=== PATIENT | male | born 1950 | race Caucasian/White ===

== ENCOUNTER 2016-11-06 08:00 | Outpatient (CLI) | payer MEDICARE, BC | END 2016-11-06 08:01 | disposition home or self-care (01) | DX: E29.1 Testicular hypofunction (principal) ==

== ENCOUNTER 2016-11-16 | Outpatient (CLI) | payer MEDICARE, BC | END 2016-11-16 23:59 | disposition EMS.NT ==

== ENCOUNTER 2016-12-12 08:00 | Outpatient (CLI) | payer MEDICARE, BC | END 2016-12-12 08:01 | disposition home or self-care (01) | DX: E78.5 Hyperlipidemia, unspecified (principal) ==

== ENCOUNTER 2017-05-02 08:01 | Outpatient (CLI) | payer MEDICARE, BC ==
[2017-05-02 12:02] LABS: BILIRUBIN,URINE NEGATIVE (NEGATIVE)
[2017-05-02 12:10] LABS: WBC,URINE 0-3 /HPF (0-3)
[2017-05-02 12:15] LABS: BILIRUBIN,TOTAL 0.9 mg/dL (0.2-1.0); BUN - BLOOD UREA NITROGEN 17 mg/dL (6-20); CALCIUM 9.4 mg/dL (8.5-10.3); CARBON DIOXIDE - CO2 28 mmol/L (21-32); CHLORIDE 103 mmol/L (101-111); CHOL/HDL RATIO 3.3 (<5.0); CHOLESTEROL 164 mg/dL; CREATININE 0.9 mg/dL (0.6-1.2); GFR - MDRD 84 (>89); GLUCOSE 91 mg/dL (70-100); HDL CHOLESTEROL 50 mg/dL; POTASSIUM 3.9 mmol/L (3.5-5.0); SODIUM 138 mmol/L (135-145); TOTAL PROTEIN 8.2 g/dL (6.7-8.2); TRIGLYCERIDES 77 mg/dL; VLDL CHOLESTEROL 15 mg/dL
== END 2017-05-02 08:02 | disposition home or self-care (01) ==
LOC: LAB.F 08:01
PROVIDERS: ATTEND Family Medicine
DX: I48.0 Paroxysmal atrial fibrillation (principal); I10 Essential (primary) hypertension; E29.1 Testicular hypofunction
CPT/HCPCS: 36415; 80053; 80061; 81001; 84403; G0103; 82040; 84153; 84270

== ENCOUNTER 2018-01-30 07:27 | Outpatient (CLI) | payer MEDICARE, BC ==
[2018-01-30 12:34] LABS: ALT ALANINE AMINOTRANSFERASE 28 IU/L (10-60); AST ASPARTATE AMINOTRANSFERASE 36 IU/L (10-42); CHOL/HDL RATIO 3.2 (<5.0); CHOLESTEROL 142 mg/dL; CK- CREATINE KINASE 72 IU/L (22-269); HDL CHOLESTEROL 44 mg/dL; LDL CHOLESTEROL,CALCULATED 83 mg/dL; LDL CHOLESTEROL,DIRECT 78 mg/dL; LDL/HDL RATIO 1.9 (<3.6); VLDL CHOLESTEROL 15 mg/dL
== END 2018-01-30 07:28 | disposition home or self-care (01) ==
LOC: LAB.F 07:27
PROVIDERS: ATTEND Internal Medicine Cardiovascular Disease
DX: E78.5 Hyperlipidemia, unspecified (principal)
CPT/HCPCS: 36415; 80061; 82550; 83721; 84450; 84460

== ENCOUNTER 2018-05-20 07:49 | Outpatient (CLI) | payer MEDICARE, BC ==
[2018-05-20 11:20] LABS: BASOPHILS % (AUTO) 0.6 %; EOSINOPHILS # (AUTO) 0.1 10^3/uL (0.0-0.7); EOSINOPHILS % (AUTO) 2.6 %; HGB - HEMOGLOBIN 13.4 g/dL (14.0-18.0); LYMPHOCYTES # (AUTO) 1.2 10^3/uL (1.5-3.5); LYMPHOCYTES % (AUTO) 24.6 %; MEAN CORPUSCULAR HEMOGLOBIN 33.5 pg (27.0-31.0); MEAN CORPUSCULAR HGB CONC 33.2 g/dL (32.0-36.0); MEAN CORPUSCULAR VOLUME 100.8 fL (80.0-94.0); MEAN PLATELET VOLUME 8.1 fL (7.4-11.4); MONOCYTES # (AUTO) 0.5 10^3/uL (0.0-1.0); MONOCYTES % (AUTO) 9.8 %; NEUTROPHILS % (AUTO) 62.4 %; PLT - PLATELET COUNT 254 10^3/uL (130-450); RED BLOOD COUNT 4.01 10^6/uL (4.70-6.10); RED CELL DISTRIBUTION WIDTH 13.8 % (12.0-15.0); WHITE BLOOD COUNT 4.8 x10^3/uL (4.8-10.8)
[2018-05-20 11:28] LABS: ALBUMIN 3.8 g/dL (3.2-5.5); ALBUMIN/GLOBULIN RATIO 0.9 (1.0-2.2); BILIRUBIN,TOTAL 0.9 mg/dL (0.2-1.0); CALCIUM 9.2 mg/dL (8.5-10.3); CREATININE 0.7 mg/dL (0.6-1.2)
[2018-05-21 14:20] LABS: % IRON SATURATION 16 % (20-50); IRON 60 ug/dL (45-182); TOTAL IRON BINDING CAPACITY 367 ug/dL (250-450); TRANSFERRIN 262 mg/dL (180-329)
== END 2018-05-20 07:50 | disposition home or self-care (01) ==
LOC: LAB.F 07:49
PROVIDERS: ATTEND Physician Assistant Medical
DX: I10 Essential (primary) hypertension (principal); E29.1 Testicular hypofunction; D64.9 Anemia, unspecified
CPT/HCPCS: 36415; 80053; 81599; 82728; 83540; 84402; 84403; 84466; 85025

== ENCOUNTER 2018-09-23 14:55 | Outpatient (CLI) | payer MEDICARE, BC ==
--- NOTE | 2018-09-23 16:26 | XRAY Report ---
Reason: COUGH Procedure Date: 09/23/2018 Accession Number: [id number] / [id number] Procedure: XR - Chest 2 View X-Ray CPT Code: 14226 FULL RESULT: EXAM: CHEST RADIOGRAPHY EXAM DATE: 09/23/2018 04:09 PM. CLINICAL HISTORY: Cough. COMPARISON: None. TECHNIQUE: 2 views. FINDINGS: Lungs/Pleura: There is a subtle right lower lung 1 cm nodule. A 0.8 cm left lower lung nodule was not seen previously. No pleural effusion. No pneumothorax. Normal volumes. Mediastinum: Normal sized cardiomediastinal silhouette, CABG changes, and calcified aortic arch, stable. Other: Stable median sternotomy changes. IMPRESSION: New lung nodules. Recommend CT to clarify. No consolidative airspace disease. RADIA
== END 2018-09-23 14:56 | disposition home or self-care (01) ==
LOC: DI 14:55
PROVIDERS: ATTEND Internal Medicine
DX: R05 Cough (principal); R91.8 Other nonspecific abnormal finding of lung field
CPT/HCPCS: 71046

== ENCOUNTER 2018-09-28 10:47 | Outpatient (CLI) | payer MEDICARE, BC ==
--- NOTE | 2018-09-29 23:03 | CT Report ---
Reason: PULMONARY NODULE Procedure Date: 09/28/2018 Accession Number: [id number] / [id number] Procedure: CT - Chest W/O CPT Code: FULL RESULT: EXAM: CT CHEST EXAM DATE: 09/28/2018 11:30 AM. CLINICAL HISTORY: PULMONARY NODULE. COMPARISONS: CHEST 2 VIEW 09/23/2018 3:38 PM. TECHNIQUE: Routine helical CT imaging was performed through the chest. IV contrast: None. Reconstructions: Coronal and sagittal. In accordance with CT protocol optimization, one or more of the following dose reduction techniques were utilized for this exam: automated exposure control, adjustment of mA and/or KV based on patient size, or use of iterative reconstructive technique. FINDINGS: Lungs/Pleura: Mild emphysema. Minimal basilar atelectasis. No pulmonary nodule or mass lesion. Mediastinum: Postoperative changes of cardiac surgery. No adenopathy. Bones: Degenerative and postoperative changes. Visualized Abdomen: Unremarkable. Other: None. IMPRESSION: Mild emphysema. No suspicious pulmonary nodule present. Plain film abnormalities likely correlate with nipple shadows. RADIA
== END 2018-09-28 10:48 | disposition home or self-care (01) ==
LOC: DI 10:47
PROVIDERS: ATTEND Internal Medicine
DX: J43.9 Emphysema, unspecified (principal)
CPT/HCPCS: 71250

== ENCOUNTER 2018-09-30 13:33 | Day surgery (SDC) | payer MEDICARE, BC ==
[2018-09-30] MEDS ORDERED: LACTATED RINGERS 1,000 ML IV ONE (13:58)
[2018-09-30] MEDS ORDERED: MIDAZOLAM 2 MG/2 ML VIAL IVP ONE (14:53)
[2018-09-30] MEDS ORDERED: fentaNYL 250 MCG/5 ML VIAL IVP ONE (14:53)
[2018-09-30 15:49] VITALS: BP 122/74
== END 2018-09-30 13:34 | disposition home or self-care (01) ==
LOC: SDS 13:33
PROVIDERS: ATTEND Surgery
PROC: 0DBP8ZZ Excision of Rectum, Via Natural or Artificial Opening Endoscopic (ICD-10-PCS; 2018-09-30)
PROC: 0DBH8ZZ Excision of Cecum, Via Natural or Artificial Opening Endoscopic (ICD-10-PCS; principal; 2018-09-30 14:45)
DX: Z12.11 Encounter for screening for malignant neoplasm of colon (principal); D12.0 Benign neoplasm of cecum; K62.1 Rectal polyp; K64.8 Other hemorrhoids; Z80.0 Family history of malignant neoplasm of digestive organs; Z79.01 Long term (current) use of anticoagulants; I10 Essential (primary) hypertension; I25.10 Atherosclerotic heart disease of native coronary artery without angina pectoris; Z95.1 Presence of aortocoronary bypass graft; I48.0 Paroxysmal atrial fibrillation
CPT/HCPCS: 45380; J3010; J7120

== ENCOUNTER 2020-10-09 15:21 | Outpatient (CLI) | payer MEDICARE, BC ==
--- NOTE | 2020-10-09 16:25 | XRAY Report ---
PROCEDURE: Chest 2 View X-Ray INDICATIONS: SHORTNESS OF BREATH TECHNIQUE: 2 view(s) of the chest. COMPARISON: CT chest 09/28/2018. FINDINGS: Surgical changes and devices: Post median sternotomy and CABG.. Lungs and pleura: No pleural effusions or pneumothorax. Lungs are clear. Mediastinum: Mediastinal contours are normal. Heart size is within normal limits. Bones and chest wall: No suspicious bony abnormalities. Soft tissues appear unremarkable. IMPRESSION: No acute cardiopulmonary abnormality. Reviewed by: Jf Dobson MD on 10/09/2020 3:24 PM RUST Approved by: Jf Dobson MD on 10/09/2020 3:24 PM RUST Station ID: [id number]
[2020-10-09 18:19] LABS: BASOPHILS % (AUTO) 0.4 %; EOSINOPHILS # (AUTO) 0.1 10^3/uL (0.0-0.7); EOSINOPHILS % (AUTO) 1.1 %; HGB - HEMOGLOBIN 14.7 g/dL (14.0-18.0); LYMPHOCYTES # (AUTO) 1.2 10^3/uL (1.5-3.5); LYMPHOCYTES % (AUTO) 25.5 %; MEAN CORPUSCULAR HEMOGLOBIN 32.9 pg (27.0-31.0); MEAN CORPUSCULAR HGB CONC 32.7 g/dL (32.0-36.0); MEAN CORPUSCULAR VOLUME 100.4 fL (80.0-94.0); MEAN PLATELET VOLUME 10.3 fL (7.4-11.4); MONOCYTES # (AUTO) 0.7 10^3/uL (0.0-1.0); MONOCYTES % (AUTO) 14.8 %; NEUTROPHILS # (AUTO) 2.8 10^3/uL (1.5-6.6); PLT - PLATELET COUNT 204 10^3/uL (130-450); RED BLOOD COUNT 4.47 10^6/uL (4.70-6.10); WHITE BLOOD COUNT 4.7 x10^3/uL (4.8-10.8)
[2020-10-09 18:27] LABS: ALBUMIN 4.5 g/dL (3.2-5.5); ALBUMIN/GLOBULIN RATIO 1.1 (1.0-2.2); BILIRUBIN,TOTAL 0.5 mg/dL (0.2-1.0); CALCIUM 9.9 mg/dL (8.5-10.3); CREATININE 0.8 mg/dL (0.6-1.2); TOTAL PROTEIN 8.6 g/dL (6.7-8.2)
== END 2020-10-09 23:59 | disposition home or self-care (01) ==
LOC: DI.S 15:21
PROVIDERS: ATTEND Physician Assistant Medical
DX: R06.02 Shortness of breath (principal); R53.83 Other fatigue
CPT/HCPCS: 36415; 80053; 85025

== ENCOUNTER 2021-10-05 07:42 | Outpatient (CLI) | payer MEDICARE, BC ==
--- NOTE | 2021-10-05 11:03 | Ultrasound Report ---
PROCEDURE: Aorta Screening INDICATIONS: EX SMOKER TECHNIQUE: Real time scanning was performed of the aorta and iliac arteries, with image documentatio n. COMPARISON: None FINDINGS: Aorta: Proximal aortic diameter measures 2.1 x 2.3 cm. Mid-aorta measures 2.0 x 2.0 cm. Distal aor tic diameter is 1.9 x 2.0 cm. Scattered atherosclerotic plaque noted. Iliac arteries: Right common iliac artery measures 1.4 x 1.5 cm. Left common iliac artery measures 1.2 x 1.2 cm. IMPRESSION: No evidence of abdominal aortic aneurysm. Reviewed by: Iva Jordan MD, PhD on 10/05/2021 11:02 AM PST Approved by: Iva Jordan MD, PhD on 10/05/2021 11:02 AM PST Station ID: [id number]
== END 2021-10-05 07:43 | disposition home or self-care (01) ==
LOC: DI 07:42
PROVIDERS: ATTEND Nurse Practitioner Family
DX: Z13.6 Encounter for screening for cardiovascular disorders (principal); Z87.891 Personal history of nicotine dependence

== ENCOUNTER 2021-10-18 14:59 | Outpatient (CLI) | payer MEDICARE, BC ==
--- NOTE | 2021-10-18 16:00 | XRAY Report ---
PROCEDURE: Cervical Spine 2 View INDICATIONS: CERVIVALGIA, BILAT PX RT/LFT HANDS/FEET TECHNIQUE: 3 view(s) of the cervical spine were acquired. COMPARISON: None. FINDINGS: Bones: No fractures or dislocations to the T1 level. The lateral masses of C1 appear intact on the odontoid view. No suspicious bony lesions. There are severe spondylitic changes of the cervical spi ne with moderate disc space loss, degenerative endplate changes, and prominent endplate osteophyte fo rmation. Findings are most pronounced from C3-4 through C6-7. There is also straightening of normal c ervical lordosis. Moderate bilateral facet arthropathy of the mid and lower cervical spine. Soft tissues: No prevertebral soft tissue swelling. IMPRESSION: Cervical spine without acute fracture. Severe multilevel spondylosis of the cervical spi ne most pronounced from C3-4 through C6-7. Straightening of normal cervical lordosis likely related t o positioning and/or concurrent muscle spasms. Reviewed by: Corbin Galvez MD on 10/18/2021 3:59 PM PST Approved by: Corbin Galvez MD on 10/18/2021 3:59 PM PST Station ID: [id number]
--- NOTE | 2021-10-18 16:02 | XRAY Report ---
PROCEDURE: Thoracic Spine 2 View INDICATIONS: CERVIVALGIA, BILAT PX RT/LFT HANDS/FEET TECHNIQUE: 3 views of the thoracic spine were acquired. COMPARISON: None. FINDINGS: Bones: No acute compression fractures. No traumatic malalignment. No suspicious bony lesions. 12 p airs of ribs are noted, and appear intact where visualized. Moderate-severe multilevel thoracic spon dylosis visualized throughout the imaged spine. Moderate degenerative endplate changes, disc space lo ss, and prominent endplate osteophyte formation. Soft tissues: No paravertebral stripe thickening. Postsurgical changes of the heart. Status post st ernotomy with intact median sternotomy wires. IMPRESSION: Moderate-severe multilevel thoracic spondylosis. No acute osseous abnormalities. Reviewed by: Corbin Galvez MD on 10/18/2021 4:00 PM PST Approved by: Corbin Galvez MD on 10/18/2021 4:00 PM PST Station ID: [id number]
--- NOTE | 2021-10-18 16:02 | XRAY Report ---
PROCEDURE: Foot 3 View BILAT INDICATIONS: CERVIVALGIA, BILAT PX RT/LFT HANDS/FEET TECHNIQUE: 3 views of each foot were acquired. COMPARISON: None FINDINGS: Bones: No fractures or dislocations. No suspicious bony lesions. Joint space narrowing and periart icular osteophyte formation at the bilateral first metatarsophalangeal joints, as well as the interph alangeal joints of the digits bilaterally. Soft tissues: No tibiotalar joint effusion. Achilles tendon appears normal. IMPRESSION: Bilateral osteoarthritis. No acute fracture. No osseous lesion. If symptoms and/or clinical suspicion for pathology continue, further assessment with repeat plain films, or advanced imaging (e.g., CT, M RI, or bone scan) is recommended for further assessment. Reviewed by: Michelle Faust MD on 10/18/2021 4:00 PM PST Approved by: Michelle Faust MD on 10/18/2021 4:00 PM PST Station ID: [id number]
--- NOTE | 2021-10-18 16:04 | XRAY Report ---
PROCEDURE: Hand 3 View BILAT INDICATIONS: CERVIVALGIA, BILAT PX RT/LFT HANDS/FEET TECHNIQUE: 3 views of each hand(s) acquired. COMPARISON: None FINDINGS: Bones: No fractures or dislocations. No suspicious bony lesions. Severe joint space narrowing and periarticular osteophyte formation at the bilateral third metacarpal phalangeal joints. Mild periarti cular osteophyte formation at the interphalangeal joints of the digits bilaterally. Mild joint space narrowing and periarticular ossified formation at the radiocarpal, scaphotrapezial, and first carpome tacarpal joints bilaterally. Soft tissues: No suspicious soft tissue calcifications. IMPRESSION: Multifocal osteoarthritis bilaterally. No acute fracture. No osseous lesion. If symptoms and/or clini chavez suspicion for pathology continue, further assessment with repeat plain films, or advanced imaging (e.g., CT, MRI, or bone scan) is recommended for further assessment. Reviewed by: Michelle Faust MD on 10/18/2021 4:03 PM PST Approved by: Michelle Faust MD on 10/18/2021 4:03 PM PST Station ID: [id number]
[2021-10-18 19:51] LABS: BASOPHILS % (AUTO) 0.8 %; EOSINOPHILS # (AUTO) 0.1 10^3/uL (0.0-0.7); EOSINOPHILS % (AUTO) 2.1 %; HCT - HEMATOCRIT 41.3 % (42.0-52.0); HGB - HEMOGLOBIN 13.6 g/dL (14.0-18.0); LYMPHOCYTES # (AUTO) 1.2 10^3/uL (1.5-3.5); MEAN CORPUSCULAR HEMOGLOBIN 32.5 pg (27.0-31.0); MEAN CORPUSCULAR HGB CONC 32.9 g/dL (32.0-36.0); MEAN CORPUSCULAR VOLUME 98.6 fL (80.0-94.0); MONOCYTES # (AUTO) 0.4 10^3/uL (0.0-1.0); MONOCYTES % (AUTO) 8.4 %; NEUTROPHILS % (AUTO) 64.5 %; PLT - PLATELET COUNT 295 10^3/uL (130-450); RED BLOOD COUNT 4.19 10^6/uL (4.70-6.10); RED CELL DISTRIBUTION WIDTH 12.7 % (12.0-15.0); WHITE BLOOD COUNT 5.1 x10^3/uL (4.8-10.8)
[2021-10-18 20:17] LABS: ALBUMIN 4.2 g/dL (3.2-5.5); ALKALINE PHOSPHATASE 70 IU/L (42-121); ALT ALANINE AMINOTRANSFERASE 18 IU/L (10-60); AST ASPARTATE AMINOTRANSFERASE 31 IU/L (10-42); BILIRUBIN,TOTAL 0.6 mg/dL (0.2-1.0); BUN - BLOOD UREA NITROGEN 19 mg/dL (6-20); CARBON DIOXIDE - CO2 27 mmol/L (21-32); CHLORIDE 101 mmol/L (101-111); CREATININE 0.9 mg/dL (0.6-1.2); GFR - MDRD 83 (>89); GLUCOSE 93 mg/dL (70-100); SODIUM 140 mmol/L (135-145); TOTAL PROTEIN 8.3 g/dL (6.7-8.2)
[2021-10-18 20:31] LABS: CRP - C-REACTIVE PROTEIN < 1.0 mg/dL (0-1.0)
[2021-10-18 21:27] LABS: RHEUMATOID FACTOR NEGATIVE (Negative)
[2021-10-19 13:25] LABS: NEUTROPHILS # (AUTO) 3.3 10^3/uL (1.5-6.6)
[2021-10-20 11:36] LABS: HEPATITIS C ANTIBODY NON-REACTIVE (NON-REACTIVE)
[2021-10-20 14:31] LABS: HIV AG/AB 4TH GEN NON-REACTIVE (NON-REACTIVE)
[2021-10-24 06:52] LABS: ANA PATTERN Nuclear, Speckled; ANA SCREEN POSITIVE (NEGATIVE)
== END 2021-10-18 15:00 | disposition home or self-care (01) ==
LOC: DI.S 14:59
PROVIDERS: ATTEND Nurse Practitioner Family
DX: M47.812 Spondylosis without myelopathy or radiculopathy, cervical region (principal); M50.31 Other cervical disc degeneration, high cervical region; M19.072 Primary osteoarthritis, left ankle and foot; M19.071 Primary osteoarthritis, right ankle and foot; M47.814 Spondylosis without myelopathy or radiculopathy, thoracic region; M19.042 Primary osteoarthritis, left hand; M19.041 Primary osteoarthritis, right hand; M25.50 Pain in unspecified joint; D64.9 Anemia, unspecified
CPT/HCPCS: 36415; 72040; 72070; 73130; 73630; 80053; 84550; 85025; 85651; 86038; 86140; 86200; 86430; 86592; 86803; 86812; G0475; 87389

== ENCOUNTER 2021-11-26 12:48 | Outpatient (CLI) | payer MEDICARE, BC | END 2021-11-26 12:49 | disposition EMS.NT | LOC: EMS 12:48 | DX: R55 Syncope and collapse (principal) ==

== ENCOUNTER 2021-12-30 08:53 | Outpatient (CLI) | payer MEDICARE, BC ==
[2021-12-30] MEDS ORDERED: ALBUTEROL 1 PUFF INH STA (09:57)
== END 2021-12-30 08:54 | disposition home or self-care (01) ==
LOC: RT 08:53
PROVIDERS: ATTEND Nurse Practitioner Family
DX: R06.00 Dyspnea, unspecified (principal)
CPT/HCPCS: 94060

== ENCOUNTER 2022-05-05 14:55 | Emergency (ER) | payer MEDICARE, BC ==
--- OUTSIDE RECORDS SUMMARY | 2022-05-05 15:54 | EXTERNAL MEDICAL SUMMARY RPT | Continuity of Care Document ---
:1950 Author Organization [facility] Address [address] [place] [address] Phone Allergies and Intolerances date description facility type (no date) SULFA (SULFONAMIDE ANTIBIOTICS) CORHIO (unknown) Encounters No information. Functional Status No information. Immunizations No information. Medications No information. Problems No information. Procedures No information. Results/Labs No information. Social History No information. Vital Signs No information.
[2022-05-05] MEDS ORDERED: ceFAZolin 1 GM VIAL IVP STA (18:05)
--- NOTE | 2022-05-05 18:06 | ED Physician Documentation ---
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 A few months ago he was visiting [place] and developed an infection in his left arm that led to sepsis. He was in intensive care for 6 days. Since then has had 1 episode more of left arm cellulitis treated successfully as an outpatient with cephalexin. Now has had about 3 to 4 days of left arm swelling and redness with fever to 102. He does not feel as bad as when he was septic. Other comorbidities include active atrial fibrillation with planned upcoming ablation which will be a second trial at ablation. Review of Systems Ten Systems: 10 systems reviewed and negative Constitutional: reports: Fever, Chills Cardiac: reports: Reviewed and negative Respiratory: reports: Reviewed and negative PD PAST MEDICAL HISTORY - Past Medical History Cardiovascular: Hypertension - Past Surgical History Past Surgical History: Yes - Present Medications Home Medications: Ambulatory Orders Medication Instructions Recorded Confirmed Amlodipine Besylate 1 08/16/14 08/16/14 Testosterone Cypionate 08/16/14 08/16/14 ALPRAZolam [Alprazolam] 1 PRN 09/27/18 Atorvastatin [Lipitor] 1 DAILY 09/27/18 Rivaroxaban [Xarelto] 1 DAILY 09/27/18 Sildenafil Citrate [Viagra] 1 PRN 09/27/18 cephALEXin [Keflex] 500 mg PO Q6H #40 cap 05/05/22 - Allergies Allergies/Adverse Reactions: Allergies Allergy/AdvReac Type Severity Reaction Status Date / Time Sulfa (Sulfonamide Allergy Rash Verified 05/05/22 15:18 Antibiotics) - Social History Does the pt smoke?: No Smoking Status: Never smoker Does the pt drink ETOH?: Yes Does the pt have substance abuse?: No PD ED PE NORMAL - Vitals Vital signs reviewed: Yes - General General: Alert and oriented X 3, No acute distress - HEENT HEENT: PERRL, EOMI - Neck Neck: Supple, no meningeal sign, No bony TTP - Cardiac Cardiac: No murmur, Other (irreg) - Respiratory Respiratory: No respiratory distress, Clear bilaterally - Abdomen Abdomen: Non tender - Derm Derm: Other (He has scars from prior radial artery harvesting on both arms. The anterior surface of the left arm is cellulitic but without significant pain with range of motion at the elbow or wrist. No palpable abscess.) - Neuro Neuro: Alert and oriented X 3, Normal speech Results - Vitals Vitals: Vital Signs - 24 hr 05/05/22 05/05/22 15:12 19:41 Temperature 37.3 C Heart Rate 109 H 97 Respiratory 18 18 Rate Blood Pressure 114/62 127/84 H O2 Saturation 97 100 Oxygen O2 Source Room air - Labs Labs: Laboratory Tests 05/05/22 05/05/22 05/05/22 18:10 18:10 18:10 WBC 11.9 H RBC 3.96 L Hgb 12.6 L Hct 38.9 L MCV 98.2 H MCH 31.8 H MCHC 32.4 RDW 14.9 Plt Count 313 MPV 9.0 Neut # (Auto) 10.4 H Lymph # (Auto) 0.8 L Pitt # (Auto) 0.6 Eos # (Auto) 0.1 Baso # (Auto) 0.1 Absolute Nucleated RBC 0.00 Nucleated RBC % 0.0 Sodium 136 Potassium 4.8 Chloride 101 Carbon Dioxide 26 Anion Gap 9.0 BUN 14 Creatinine 0.8 Estimated GFR (MDRD) 95 Glucose 106 H Lactic Acid 1.2 Calcium 9.1 Procalcitonin 05/05/22 18:10 WBC RBC Hgb Hct MCV MCH MCHC RDW Plt Count MPV Neut # (Auto) Lymph # (Auto) Pitt # (Auto) Eos # (Auto) Baso # (Auto) Absolute Nucleated RBC Nucleated RBC % Sodium Potassium Chloride Carbon Dioxide Anion Gap BUN Creatinine Estimated GFR (MDRD) Glucose Lactic Acid Calcium Procalcitonin 0.13 PD MEDICAL DECISION MAKING - ED course ED course: 71-year-old gentleman with left arm cellulitis. Labs are reassuring. And he is started on Keflex, got 1 g of Ancef IM here. 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 Your labs are looking okay, your white count slightly high at 11, but procalcitonin normal. Return for new or worsening symptoms or if not better in the next 48 hours. Follow-up with your primary care physician early next week. Discharge Date/Time: 05/05/22 19:42
[2022-05-05 18:19] LABS: BASOPHILS # (AUTO) 0.1 10^3/uL (0.0-0.1); BASOPHILS % (AUTO) 0.5 %; EOSINOPHILS # (AUTO) 0.1 10^3/uL (0.0-0.7); HCT - HEMATOCRIT 38.9 % (42.0-52.0); HGB - HEMOGLOBIN 12.6 g/dL (14.0-18.0); LYMPHOCYTES # (AUTO) 0.8 10^3/uL (1.5-3.5); LYMPHOCYTES % (AUTO) 6.4 %; MEAN CORPUSCULAR HEMOGLOBIN 31.8 pg (27.0-31.0); MEAN CORPUSCULAR HGB CONC 32.4 g/dL (32.0-36.0); MEAN CORPUSCULAR VOLUME 98.2 fL (80.0-94.0); MONOCYTES # (AUTO) 0.6 10^3/uL (0.0-1.0); NEUTROPHILS # (AUTO) 10.4 10^3/uL (1.5-6.6); NEUTROPHILS % (AUTO) 86.8 %; PLT - PLATELET COUNT 313 10^3/uL (130-450); RED BLOOD COUNT 3.96 10^6/uL (4.70-6.10); RED CELL DISTRIBUTION WIDTH 14.9 % (12.0-15.0); WHITE BLOOD COUNT 11.9 x10^3/uL (4.8-10.8)
[2022-05-05 18:29] LABS: CALCIUM 9.1 mg/dL (8.5-10.3); CREATININE 0.8 mg/dL (0.6-1.2); POTASSIUM 4.8 mmol/L (3.5-5.0)
[2022-05-05] MEDS ORDERED: ceFAZolin 1 GM VIAL IM STA (19:09)
[2022-05-05 19:42] VITALS: BP 127/84
== END 2022-05-05 19:42 | disposition home or self-care (01) ==
LOC: ED 14:55
DX: L03.114 Cellulitis of left upper limb (principal); Z95.1 Presence of aortocoronary bypass graft; I48.91 Unspecified atrial fibrillation; I10 Essential (primary) hypertension
CPT/HCPCS: 36415; 80048; 83605; 84145; 85025; 87040; 96374; 99283

== ENCOUNTER 2022-05-17 09:42 | Outpatient (CLI) | payer MEDICARE, BC | END 2022-05-17 23:59 | disposition short-term general hospital (02) | LOC: EMS 09:42 | DX: R06.02 Shortness of breath (principal); R53.83 Other fatigue | CPT/HCPCS: A0425; A0429 ==

== ENCOUNTER 2022-10-11 23:10 | Outpatient (CLI) | payer MEDICARE, BC | END 2022-10-11 23:11 | disposition short-term general hospital (02) | LOC: EMS 23:10 | DX: R41.0 Disorientation, unspecified (principal); R53.1 Weakness; R51.9 Headache, unspecified; H53.8 Other visual disturbances; R47.81 Slurred speech | CPT/HCPCS: A0425; A0429 ==

== ENCOUNTER 2023-09-12 01:00 | Outpatient (CLI) | payer MEDICARE, BC | END 2023-09-12 01:01 | disposition critical access hospital (66) | LOC: EMS 01:00 | DX: R06.02 Shortness of breath (principal) | CPT/HCPCS: A0425; A0427 ==

== ENCOUNTER 2023-09-12 01:40 | Emergency (ER) | payer MEDICARE, BC ==
[2023-09-12 02:31] LABS: BASOPHILS # (AUTO) 0.1 10^3/uL (0.0-0.1); BASOPHILS % (AUTO) 0.7 %; EOSINOPHILS # (AUTO) 0.2 10^3/uL (0.0-0.7); EOSINOPHILS % (AUTO) 1.6 %; HCT - HEMATOCRIT 26.1 % (42.0-52.0); HGB - HEMOGLOBIN 8.2 g/dL (14.0-18.0); LYMPHOCYTES # (AUTO) 0.7 10^3/uL (1.5-3.5); LYMPHOCYTES % (AUTO) 5.9 %; MEAN CORPUSCULAR HEMOGLOBIN 29.7 pg (27.0-31.0); MEAN CORPUSCULAR HGB CONC 31.4 g/dL (32.0-36.0); MEAN CORPUSCULAR VOLUME 94.6 fL (80.0-94.0); MEAN PLATELET VOLUME 8.7 fL (7.4-11.4); MONOCYTES % (AUTO) 8.6 %; NEUTROPHILS # (AUTO) 9.3 10^3/uL (1.5-6.6); NEUTROPHILS % (AUTO) 82.7 %; PLT - PLATELET COUNT 344 10^3/uL (130-450); RED BLOOD COUNT 2.76 10^6/uL (4.70-6.10); RED CELL DISTRIBUTION WIDTH 13.3 % (12.0-15.0); WHITE BLOOD COUNT 11.3 x10^3/uL (4.8-10.8)
[2023-09-12 03:09] LABS: ALBUMIN 2.6 g/dL (3.2-5.5); ALBUMIN/GLOBULIN RATIO 0.8 (1.0-2.2); BILIRUBIN,TOTAL 0.4 mg/dL (0.2-1.0); CREATININE 0.8 mg/dL (0.6-1.3); POTASSIUM 4.3 mmol/L (3.5-4.5); TOTAL PROTEIN 5.7 g/dL (6.4-8.9)
[2023-09-12] MEDS ORDERED: ONDANSETRON 4 MG/2 ML VIAL IVP STA ×2 (03:11→13:41)
[2023-09-12 03:45] LABS: B. PARAPERTUSSIS- RESP PCR PAN NOT DETECTED; B. PERTUSSIS- RESP PCR PANEL NOT DETECTED; C. PNEUMONIAE- RESP PCR PANEL NOT DETECTED; CORONAVIRUS 229E-RESP PCR NOT DETECTED; CORONAVIRUS HKU1-RESP PCR NOT DETECTED; CORONAVIRUS NL63-RESP PCR NOT DETECTED; CORONAVIRUS OC43-RESP PCR NOT DETECTED; HUMAN METAPNEUMOVIRUS NOT DETECTED; INFLUENZA A- RESP PCR PANEL NOT DETECTED; INFLUENZA B - RESP PCR PANEL NOT DETECTED; M. PNEUMONIAE- RESP PCR PANEL NOT DETECTED; PARAINFLUENZA VIRUS 1 NOT DETECTED; PARAINFLUENZA VIRUS 2 NOT DETECTED; PARAINFLUENZA VIRUS 3 NOT DETECTED; PARAINFLUENZA VIRUS 4 NOT DETECTED; RHINOVIRUS/ENTEROVIRUS NOT DETECTED; RSV- RESP PCR PANEL NOT DETECTED; SARS-CoV-2 -RESP PCR PANEL NOT DETECTED
--- NOTE | 2023-09-12 04:21 | ED Physician Documentation ---
History of Present Illness - Stated complaint Stated Complaint: SOA - Chief complaint Chief Complaint: Resp - History obtained from History obtained from: Patient, Family - Additonal information Additional information: Patient is a 73-year-old male presenting for evaluation of feeling short of breath and fatigued for the past 2 days. He was recently admitted to the [facility] from September 06 to September 10. 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 Identification of the bacterium is still pending.Patient currently has a PICC line in place and is receiving IV cefepime as well as IV vancomycinWhile awaiting culture results.Since being home he has felt more short of breath. He also reports having episodes of chest tightness. He has had a cough with clear phlegm. No fevers. He does have a history of atrial fibrillation and is currently on Eliquis but his current dose is 2.5 mg twice daily.He does have a history of congestive heart failure and is on spironolactone. He does not feel like he is urinating very much. He was off the diuretic while admitted recently and just restarted for past 2 days ago. He denies lower extremity swelling but does feel bloating in his abdomen.EMS administered a DuoNeb treatment. He was 92 to 93% on room air. He states he feels slightly better. He has not smoked in a very long time. Most recent ID note on 09/10/23: 1.right knee P JI Unclear initially if purulent fluid in the knee was from crystals, with previous history of pseudogout, inflammatory arthritis, or P JI. And now has 2 separate synovial fluid specimen showing AFB. This is an unusual isolate for a joint. However atypical mycobacteria can occasionally cause prosthetic joint infections. It is possible that this could be a stain artifact but less likely with 2 separate cultures having positive stain. Also possible he might still grow atypical bacteria. After discussion with patient and , elects to continue antibiotics for bacteria for 2 weeks as originally planned. Will await growth, identification, susceptibilities on any AFB positive bacteria. Patient and understand that AFB can grow very slowly and culture may take weeks to turn positive. Cannot empirically treat for AFB given the multiple different types which require different antibiotics. need to at least have identification at the species level 2 have a reasonable chance of predicting appropriate antibiotic therapy. If his cultures come back showing resistance to tobramycin then it might be necessary to remove his spacer and replace with 1 with appropriate antibiotic impregnated in the cement. Recommendation: 1.continue plans for OP AT with vancomycin and cefepime. Order sent option care. 2.vancomycin trough goal 10-15 3.follow-up creatinine twice weekly on vancomycin 4.await culture results including AFB 5.add mycobacterial PCR to see if we can get quicker identification 6.PICC line ordered Review of Systems Constitutional: denies: Fever Cardiac: reports: Chest pain / pressure Respiratory: reports: Dyspnea, Cough GI: reports: Nausea. denies: Abdominal Pain, Vomiting Neurologic: denies: Head injury PD PAST MEDICAL HISTORY - Past Medical History Cardiovascular: Hypertension - Past Surgical History Past Surgical History: Yes - Present Medications Home Medications: Ambulatory Orders Medication Instructions Recorded Confirmed Acetaminophen [Tylenol] 650 mg PO Q6H PRN 09/12/23 09/12/23 Albuterol Sulf [Ventolin Hfa 1 - 2 puffs INH Q4HR PRN 09/12/23 09/12/23 Inhaler] Apixaban [Eliquis] 5 mg ORAL BID 09/12/23 09/12/23 Cefepime 2 gm IV TID 09/12/23 09/12/23 Dronedarone HCl [Multaq] 400 mg PO BID 09/12/23 09/12/23 Fluticasone [Flonase] 2 sprays JEANNIE DAILY 09/12/23 09/12/23 Hydroxychloroquine Sulfate 300 mg PO DAILY 09/12/23 09/12/23 Metoprolol Succinate [Toprol Xl] 25 mg PO BID 09/12/23 09/12/23 Ondansetron Odt [Zofran Odt] 4 mg TL Q6H PRN 09/12/23 09/12/23 Prednisone [Robin] 3 mg PO DAILY 09/12/23 09/12/23 Spironolactone [Aldactone] 25 mg PO DAILY 09/12/23 09/12/23 Umeclidinium Brm/Vilanterol Tr 1 puffs INH DAILY 09/12/23 09/12/23 [Anoro Ellipta 62.5-25 Mcg INH] Vancomycin/Water For Inj (Peg) 1.25 gm IV BID 09/12/23 09/12/23 [Vancomycin 1.25 gm/250 ml Bag] oxyCODONE [Roxicodone] 5 - 10 mg PO Q4HR PRN 09/12/23 09/12/23 traMADol [Ultram] 50 mg PO Q6H PRN 09/12/23 09/12/23 - Allergies Allergies/Adverse Reactions: Allergies Allergy/AdvReac Type Severity Reaction Status Date / Time Sulfa (Sulfonamide Allergy Rash Verified 09/12/23 01:59 Antibiotics) - Social History Does the pt smoke?: No Smoking Status: Never smoker Does the pt drink ETOH?: Yes Does the pt have substance abuse?: No - POLST Patient has POLST: No PD ED PE NORMAL - General General: Alert and oriented X 3, No acute distress, Well developed/nourished - HEENT HEENT: Atraumatic - Neck Neck: Supple, no meningeal sign - Cardiac Cardiac: RRR, Other (+murmur) - Respiratory Respiratory: No respiratory distress, Clear bilaterally, Other (Diminished at the bases) - Abdomen Abdomen: Normal bowel sounds, Soft, Non tender, Non distended - Derm Derm: Warm and dry - Extremities Extremities: No calf tenderness / cord - Neuro Neuro: Normal speech Results - Vitals Vitals: Vital Signs - 24 hr 09/12/23 09/12/23 09/12/23 01:53 03:58 07:33 Temperature 37.2 C Heart Rate 79 71 76 Respiratory 24 20 24 Rate Blood Pressure 109/59 L 104/58 L 107/64 O2 Saturation 96 99 99 If not protocol 2 2 : Oxygen Flow, liters/minute 09/12/23 09/12/23 09/12/23 07:35 08:15 09:24 Temperature 36.7 C Heart Rate 76 78 82 Respiratory 18 20 26 H Rate Blood Pressure 108/66 117/68 O2 Saturation 98 92 If not protocol : Oxygen Flow, liters/minute 09/12/23 09/12/23 09/12/23 12:04 12:08 13:59 Temperature Heart Rate 101 H 77 86 Respiratory 19 18 18 Rate Blood Pressure 119/56 L 119/67 112/66 O2 Saturation 95 If not protocol : Oxygen Flow, liters/minute 09/12/23 09/12/23 15:36 16:10 Temperature Heart Rate 83 80 Respiratory 18 24 Rate Blood Pressure 108/63 101/62 O2 Saturation 95 91 L If not protocol : Oxygen Flow, liters/minute Oxygen O2 Source Room air Oxygen Flow Rate 2 - EKG (time done) 0214 EKG releavant findings:: EKG personally interpreted by author of this note. Relevant findings are: Rate 77, normal sinus rhythm, no STEMI, QTc 482 - Labs Labs: Laboratory Tests 09/12/23 09/12/23 09/12/23 02:22 02:22 02:22 WBC 11.3 H RBC 2.76 L Hgb 8.2 L Hct 26.1 L MCV 94.6 H MCH 29.7 MCHC 31.4 L RDW 13.3 Plt Count 344 MPV 8.7 Neut # (Auto) 9.3 H Lymph # (Auto) 0.7 L [place] # (Auto) 1.0 Eos # (Auto) 0.2 Baso # (Auto) 0.1 Absolute Nucleated RBC 0.00 Nucleated RBC % 0.0 D-Dimer 765.6 H Sodium Cancelled Potassium Cancelled Chloride Cancelled Carbon Dioxide Cancelled Anion Gap Cancelled BUN Cancelled Creatinine Cancelled Estimated GFR (MDRD) Cancelled Glucose Cancelled Calcium Cancelled Total Bilirubin Cancelled AST Cancelled ALT Cancelled Alkaline Phosphatase Cancelled Troponin I High Sens 273.6 H* B-Natriuretic Peptide Total Protein Cancelled Albumin Cancelled Globulin Cancelled Albumin/Globulin Ratio Cancelled Lipase Cancelled Nasal Adenovirus (PCR) Nasal B. parapertussis DNA (PCR) Nasal Coronavir 229E PCR Nasal Coronavir HKU1 PCR Nasal Coronavir NL63 PCR Nasal Coronavir OC43 PCR Nasal Enterovir/Rhinovir PCR Nasal Influenza B PCR Nasal Influenza A PCR Nasal Parainfluen 1 PCR Nasal Parainfluen 2 PCR Nasal Parainfluen 3 PCR Nasal Parainfluen 4 PCR Nasal RSV (PCR) Nasal B.pertussis DNA PCR Nasal C.pneumoniae (PCR) Jeannie Human Metapneumo PCR Nasal M.pneumoniae (PCR) Nasal SARS-CoV-2 (PCR) 09/12/23 09/12/23 09/12/23 02:22 02:22 02:43 WBC RBC Hgb Hct MCV MCH MCHC RDW Plt Count MPV Neut # (Auto) Lymph # (Auto) [place] # (Auto) Eos # (Auto) Baso # (Auto) Absolute Nucleated RBC Nucleated RBC % D-Dimer Sodium 131 L Potassium 4.3 Chloride 99 L Carbon Dioxide 24 Anion Gap 8.0 BUN 17 Creatinine 0.8 Estimated GFR (MDRD) 95 Glucose 113 H Calcium 9.0 Total Bilirubin 0.4 AST 44 H ALT 30 Alkaline Phosphatase 142 H Troponin I High Sens B-Natriuretic Peptide 1533 H Total Protein 5.7 L Albumin 2.6 L Globulin 3.1 Albumin/Globulin Ratio 0.8 L Lipase 30 Nasal Adenovirus (PCR) NOT DETECTED Nasal B. parapertussis DNA (PCR) NOT DETECTED Nasal Coronavir 229E PCR NOT DETECTED Nasal Coronavir HKU1 PCR NOT DETECTED Nasal Coronavir NL63 PCR NOT DETECTED Nasal Coronavir OC43 PCR NOT DETECTED Nasal Enterovir/Rhinovir PCR NOT DETECTED Nasal Influenza B PCR NOT DETECTED Nasal Influenza A PCR NOT DETECTED Nasal Parainfluen 1 PCR NOT DETECTED Nasal Parainfluen 2 PCR NOT DETECTED Nasal Parainfluen 3 PCR NOT DETECTED Nasal Parainfluen 4 PCR NOT DETECTED Nasal RSV (PCR) NOT DETECTED Nasal B.pertussis DNA PCR NOT DETECTED Nasal C.pneumoniae (PCR) NOT DETECTED Jeannie Human Metapneumo PCR NOT DETECTED Nasal M.pneumoniae (PCR) NOT DETECTED Nasal SARS-CoV-2 (PCR) NOT DETECTED 09/12/23 05:04 WBC RBC Hgb Hct MCV MCH MCHC RDW Plt Count MPV Neut # (Auto) Lymph # (Auto) [place] # (Auto) Eos # (Auto) Baso # (Auto) Absolute Nucleated RBC Nucleated RBC % D-Dimer Sodium Potassium Chloride Carbon Dioxide Anion Gap BUN Creatinine Estimated GFR (MDRD) Glucose Calcium Total Bilirubin AST ALT Alkaline Phosphatase Troponin I High Sens 279.3 H* B-Natriuretic Peptide Total Protein Albumin Globulin Albumin/Globulin Ratio Lipase Nasal Adenovirus (PCR) Nasal B. parapertussis DNA (PCR) Nasal Coronavir 229E PCR Nasal Coronavir HKU1 PCR Nasal Coronavir NL63 PCR Nasal Coronavir OC43 PCR Nasal Enterovir/Rhinovir PCR Nasal Influenza B PCR Nasal Influenza A PCR Nasal Parainfluen 1 PCR Nasal Parainfluen 2 PCR Nasal Parainfluen 3 PCR Nasal Parainfluen 4 PCR Nasal RSV (PCR) Nasal B.pertussis DNA PCR Nasal C.pneumoniae (PCR) Jeannie Human Metapneumo PCR Nasal M.pneumoniae (PCR) Nasal SARS-CoV-2 (PCR) PD Medical Decision Making - ED course Complexity details: reviewed results, re-evaluated patient, d/w patient, d/w family ED course: Pt is a 73 yo M with recent hospitalization for knee infection on IV antibiotics (cefepime and vanc) presenting with fatigue and SOA. Has history of COPD and was given neb prior to arrival. Also was on diuretics but was off while admitted recently and now back on for past 2 days. No knee complaints today. Labs including CBC, chemistries, troponin, BNP, ddimer obtained and reviewed. Troponin elevated but no change on 2nd so less likely indicative of ACS. Ddimer elevated as is BNP. Mild hyponateremia which was also noted on discharge labs 2 days ago from hospital. Also noted to have anemia which was also seen in recent labs and mild leukocytosis. VSS. Chest XR with R sided opacities. CTA obtained and reviewed. No PE. Pulmonary nodule present which I reviewed with patient and family and need for follow up. Also has loculated R sided pleural effusion. Unclear etiology of this effusion and whether it is related to the infection he is being treated for. Patient is medically complex with unusual infection in knee and now new fluid collection in the lung while on antibiotic treatment. Patient signed out at shift change to Dr. Caldwell pending consult with ID at regarding workup of this fluid collection. Patient also given dose of IV lasix for diuresis. 741 - D/ Dr. Hoffman. Would want ID consult regarding loculated pleural effusion. Departure - Departure Disposition: 01 Home, Self Care Clinical Impression: Pleural effusion, right, Shortness of breath, Pulmonary nodule, CHF (congestive heart failure) Condition: Stable Instructions: ED CHF General Comments: Continue with your current medications including your usual diuretic that you resumed after discharge. We did diurese a couple of liters of fluid from you and hopefully this will help with your breathing. I would just resume your usual diuretic/continue it. Your electrolytes appeared good here. Your echocardiogram showed a ejection fraction in the normal range of 55 to 60%. No effusion. No focal wall abnormality to suggest acute injury. I did talk with your orthopedic service at the as well as the infectious disease service. They did not see any need to change your current therapies nor any reason to drain the fluid diagnostically that is around the right lung. It is a small amount. It has been present on prior imaging. Follow-up with orthopedics next week as planned. Follow-up with your primary care as well. Return if worsening symptoms again. Forms: PCP List
[2023-09-12] MEDS ORDERED: CEFEPIME 2 GM in SODIUM CHLORIDE 0.9% MINIBAG 100 ML IV STA ×2 (06:35→15:43)
[2023-09-12] MEDS ORDERED: iohexoL-300 100 ML VIAL IVP ONE (06:54)
[2023-09-12] MEDS ORDERED: FUROSEMIDE 20 MG/2 ML VIAL IVP STA (07:23)
[2023-09-12] MEDS ORDERED: ALBUTEROL NEB 2.5 MG/3 ML INH SCH (07:44)
--- NOTE | 2023-09-12 08:19 | XRAY Report ---
PROCEDURE: Chest 1 View X-Ray INDICATIONS: SOA TECHNIQUE: One view of the chest was acquired. COMPARISON: None. FINDINGS: Surgical changes and devices: Left-sided PICC line tip is in SVC. Median sternotomy wires and surgic al clips are seen.. Lungs and pleura: There is suggestion of small to moderate right pleural effusion with airspace opaci ty in right mid to lower lung field. Subtle hazy opacities also seen in mid to lower left lung field. No left-sided pleural effusion or pneumothorax. Mediastinum: Mediastinal contours appear normal. Heart size is enlarged. Bones and chest wall: No suspicious bony lesions. Overlying soft tissues appear unremarkable. IMPRESSION: Small to moderate right pleural effusion with right worse than left bilateral lower lobe infiltrate versus atelectasis. No pneumothorax. No significant discrepancies from preliminary reading. Reviewed by: Akhil Silvestre MD on 09/12/2023 8:18 AM PST Approved by: Akhil Silvestre MD on 09/12/2023 8:18 AM PST Station ID: [id number]
--- NOTE | 2023-09-12 08:24 | CT Report ---
PROCEDURE: ANGIO CHEST W/WO INDICATIONS: CP/SOA/recent surgery/elevated ddimer CONTRAST: Omni 300 80ml TECHNIQUE: After the administration of intravenous contrast, 2 mm axial images were acquired from the pulmonary apices to the posterior costophrenic angles during the arterial phase. In addition, 1 mm lung kernel and 5 mm soft tissue kernel reconstructions were performed. 3-dimensional coronal oblique maximum int ensity projection (MIP) reformats, 8 mm axial MIP, and 5 mm coronal and sagittal MPR reformats were t hen performed through the thorax. For radiation dose reduction, the following was used: automated exp osure control, adjustment of mA and/or kV according to patient size. COMPARISON: Chest radiograph from the same day. FINDINGS: Image quality: Excellent. Large vessels: No filling defects within the opacified pulmonary arteries, accounting for motion and contrast timing. No evidence of acute aortic syndrome or aortic aneurysm. Lungs and pleura: Mild centrilobular emphysema is seen. There is a moderate-sized partially loculated right pleural effusion. Small left pleural effusion is also seen. Scattered airspace opacities are n oted in adjacent right middle and lower lobes as well as posterior aspect of left lower lobe. Depende nt atelectasis in posterior aspect of bilateral upper lobes are seen. Solid appearing nodule in left upper lobe is seen measures 1 cm in size series 4 image 130. Central and peripheral airway is patent. No pneumothorax. Mediastinum: Heart size is enlarged. No pericardial effusion. No large vessel abnormality. Prominent mediastinum no lymph nodes are seen measures up to 1.8 cm in size in right paratracheal space.. Poss ible left atrial appendage occlusion device is seen. Moderate atherosclerotic calcifications are note d in coronary vessels and thoracic aorta. Chest wall and lower neck: Thyroid is unremarkable. No axillary or supraclavicular adenopathy by size . Median sternotomy wires and surgical clips are seen. Bones: No aggressive osseous abnormality. Upper Abdomen: Unremarkable. IMPRESSION: 1. No pulmonary emboli. 2. Moderate sized partially loculated right pleural effusion and small left pleural effusion with adj acent bilateral lower lobe atelectasis. Underlying infiltrates cannot be excluded. 3. No thoracic aortic aneurysm or gross dissection. Moderate atherosclerotic calcifications in everett ry vessels and thoracic aorta. 4. Mild centrilobular emphysema. 1 cm left upper lobe nodule. Consider PET/CT for further evaluation to rule out malignant process. No significant discrepancies from preliminary reading. Reviewed by: Akhil Silvestre MD on 09/12/2023 8:23 AM PST Approved by: Akhil Silvestre MD on 09/12/2023 8:23 AM PST Station ID: [id number]
[2023-09-12] MEDS: oxyCODONE 5 MG TABLET PO SCH ×3 (09:12→16:43)
[2023-09-12] MEDS: ACETAMINOPHEN 325 MG TABLET PO SCH ×3 (09:12→16:42)
--- NOTE | 2023-09-12 09:26 | ED Physician Documentation ---
ED Addendum - Addendum Addendum: 09/12/23 09:24 Patient seen after change of shift. He was complaining of some dyspnea. Has a history of some underlying lung disease/COPD and uses nebulizers regularly and home oxygen. He was given a DuoNeb treatment here and ordered 3 times a day DuoNebs. I did talk with the transfer center for consultation with infectious disease regarding his new dyspnea and loculated effusion if recommendation is for tapping of that and if so what studies versus transfer etc. I did talk with our radiologist on who would reviewed the CT scan. He thought it was likely approachable but would need to see ultrasound to to best evaluate. The patient remained stable at this point. We are continuing his IV antibiotics as at home. 09/12/23 15:45 The patient is breathing easily and comfortable. His oxygenation is 94 to 96% on room air. His lungs sound fairly clear with just faint fine crackles at the bases. He is feeling much more comfortable. He has diuresed approximately 2 L here in the ER. Blood pressures remain good. I did talk with the infectious disease specialist, Dr. ALCANTARA and I, who did not feel the lung effusion was related to an infectious process, in particular not satellite it from the knee. He did not feel the need for tapping of the effusion and looking back on prior imaging, the effusion has been present on several prior images. We were able to get a bedside echocardiogram which showed an ejection fraction 55 to 60% and no wall motion abnormality. He does have some mild valvular dysfunction. He had been off his usual diuretic while in the hospital and only resumed it 2 days ago. His states he had a adenosine stress test apparently (not on a treadmill) prior to his knee surgery. That did not show any ischemic changes. With a relatively recent stress test without any ischemic changes and a current echocardiogram with normal ejection fraction and no wall abnormality and history of some apparent congestive failure off of diuretics for the past week and a half, at this point it seems reasonable to just resume his regular diuretic after having had a good diuresis here. He is not hypoxic and has unlabored breathing. I do not see a reason for hospitalization at this point. There is no indication for transfer as Ortho and infectious disease do not see any reason for interventions. The patient is due for dose of cefepime that he would have gotten at home. We can give this prior to discharge. He is to resume his usual diuretic. Disposition: The patient discharged home in stable condition. Diagnoses: 1. Exacerbation of CHF 2. Dyspnea 3. Right pleural effusion 4. Knee infection
[2023-09-12] MEDS ORDERED: VANCOMYCIN INJ 1 GM, VANCOMYCIN INJ 250 MG in SODIUM CHLORIDE 0.9% 250 ML IV ONE (11:00)
[2023-09-12 16:13] VITALS: BP 101/62; O2SAT 91
--- NOTE | 2023-09-12 16:20 | PHARMACY PROGRESS NOTE ---
- Best Possible Medication History Admit Date and Time: Processed by: Nursing Medication History completed: Yes Patient Interview: Completed Secondary Source(s): Physician records, Pharmacy records, Insurance records As the person ultimately responsible for medication therapy, providers are able to order a medication from an existing home medication list in [facility] via the "Reconcile Routine" prior to Confirmation of that medication by customer support advisor. Such practice is discouraged except when the physician, in their clinical judgment, deems that a medical need exists for a medication without regard to previous use.
== END 2023-09-12 17:00 | disposition home or self-care (01) ==
LOC: EDUNIT# → ED 01:40
DX: J90 Pleural effusion, not elsewhere classified (principal); R91.1 Solitary pulmonary nodule; I50.9 Heart failure, unspecified; I48.91 Unspecified atrial fibrillation; Z79.01 Long term (current) use of anticoagulants; I10 Essential (primary) hypertension
CPT/HCPCS: 36415; 71045; 71275; 80053; 83690; 83880; 84484; 85025; 85379; 87633; 93005; 93306; 94640; 94664; 96365; 96366; 96367; 96375; 96376; 99284; 99285; A9270; J3370; Q9967

== ENCOUNTER 2023-09-16 15:04 | Outpatient (CLI) | payer MEDICARE, BC | END 2023-09-16 23:59 | disposition short-term general hospital (02) | LOC: EMS 15:04 | DX: R50.9 Fever, unspecified (principal); R53.1 Weakness; R11.0 Nausea; R41.89 Other symptoms and signs involving cognitive functions and awareness; R06.89 Other abnormalities of breathing; Z96.651 Presence of right artificial knee joint | CPT/HCPCS: A0425; A0429 ==

== ENCOUNTER 2023-10-02 15:10 | Outpatient (CLI) | payer MEDICARE, BC ==
[2023-10-02 15:16] LABS: BASOPHILS # (AUTO) 0.1 10^3/uL (0.0-0.1); EOSINOPHILS # (AUTO) 0.4 10^3/uL (0.0-0.7); HCT - HEMATOCRIT 30.5 % (42.0-52.0); HGB - HEMOGLOBIN 9.4 g/dL (14.0-18.0); LYMPHOCYTES # (AUTO) 0.7 10^3/uL (1.5-3.5); MEAN CORPUSCULAR HEMOGLOBIN 28.9 pg (27.0-31.0); MEAN CORPUSCULAR HGB CONC 30.8 g/dL (32.0-36.0); MEAN CORPUSCULAR VOLUME 93.8 fL (80.0-94.0); MEAN PLATELET VOLUME 9.4 fL (7.4-11.4); MONOCYTES # (AUTO) 0.5 10^3/uL (0.0-1.0); MONOCYTES % (AUTO) 3.2 %; NEUTROPHILS # (AUTO) 12.4 10^3/uL (1.5-6.6); NEUTROPHILS % (AUTO) 87.2 %; PLT - PLATELET COUNT 314 10^3/uL (130-450); RED BLOOD COUNT 3.25 10^6/uL (4.70-6.10); RED CELL DISTRIBUTION WIDTH 15.5 % (12.0-15.0); WHITE BLOOD COUNT 14.3 x10^3/uL (4.8-10.8)
[2023-10-02 15:48] LABS: ALBUMIN 2.9 g/dL (3.2-5.5); BILIRUBIN,TOTAL 0.4 mg/dL (0.2-1.0); CREATININE 1.9 mg/dL (0.6-1.3); TOTAL PROTEIN 5.9 g/dL (6.4-8.9)
== END 2023-10-02 15:11 | disposition home or self-care (01) ==
LOC: LAB.R 15:10
PROVIDERS: ATTEND Internal Medicine Infectious Disease
DX: I48.0 Paroxysmal atrial fibrillation (principal); D64.9 Anemia, unspecified; Z79.2 Long term (current) use of antibiotics
CPT/HCPCS: 80048; 80053; 85025

== ENCOUNTER 2023-11-11 05:24 | Outpatient (CLI) | payer MEDICARE, BC | END 2023-11-11 05:25 | disposition short-term general hospital (02) | LOC: EMS 05:24 | DX: R06.02 Shortness of breath (principal); I48.91 Unspecified atrial fibrillation | CPT/HCPCS: A0425; A0427 ==